=== PATIENT | male | born 2000 | race Caucasian/White ===

== ENCOUNTER 2025-03-16 23:11 | Emergency (ER) | payer OTHER ==
[~2025-03-16] VITALS: Ht 177.8 cm; Wt 120.5 kg
[2025-03-16] MEDS: traMADol 50 MG TAB PO ONE (23:34)
[2025-03-17 01:20] VITALS: BP 121/77; TEMP 98; O2SAT 96
[2025-03-17] MEDS: traMADol 50 MG TAB (HOME DOSE PACK) PO ONE (01:21)
== END 2025-03-17 01:25 | disposition home or self-care (01) ==
LOC: M ED 23:11 → EDBD 23:11 → M ED 03-17 01:25
DX: S00.83XA Contusion of other part of head, initial encounter (principal); S60.212A Contusion of left wrist, initial encounter; S20.20XA Contusion of thorax, unspecified, initial encounter; Y92.410 Unspecified street and highway as the place of occurrence of the external cause; Y93.9 Activity, unspecified; Y99.9 Unspecified external cause status

== ENCOUNTER 2025-05-29 09:14 | Emergency (ER) | payer OTHER ==
[~2025-05-29] VITALS: Ht 177.8 cm; Wt 127.1 kg
[2025-05-29] MEDS: METHOCARBAMOL 1,000 MG/10 ML VIAL IV ONE (11:57)
[2025-05-29] MEDS: KETOROLAC 30 MG/ML 1 ML VIAL IV ONE (11:58)
[2025-05-29] MEDS: LIDOCAINE 5% PATCH TD ONE (11:58)
[2025-05-29] MEDS ORDERED: METH-1164 PO (13:09)
[2025-05-29] MEDS ORDERED: MEDR4PAK PO (13:10)
[2025-05-29] MEDS ORDERED: LIDO1ADH93 TD (13:10)
[2025-05-29 13:39] VITALS: BP 127/77; TEMP 97.2; O2SAT 98
[2025-05-29] MEDS ORDERED: LIDO1ADH93 TOP (14:03)
== END 2025-05-29 14:07 | disposition home or self-care (01) ==
LOC: M ED 09:14
DX: S23.3XXA Sprain of ligaments of thoracic spine, initial encounter (principal); Y92.9 Unspecified place or not applicable; Y93.9 Activity, unspecified; Y99.9 Unspecified external cause status; K21.9 Gastro-esophageal reflux disease without esophagitis; F17.290 Nicotine dependence, other tobacco product, uncomplicated; Z79.899 Other long term (current) drug therapy
CPT/HCPCS: 72128; 80047; 96374; 96375; 99284; J1885; J2800; J2919